=== PATIENT | female | born 1980 | race Two or more races ===

== ENCOUNTER 2024-06-18 06:51 | Day surgery (SDC) | payer BC, SELFPAY ==
[2024-06-18] VITALS (10 sets, daily range): BP systolic 145–182; BP diastolic 78–101; BMI 30.1
[2024-06-18] MEDS: TYLENOL 1000 MG PO (08:10)
[2024-06-18] MEDS: CELEBREX 200 MG PO (08:11)
[2024-06-18 08:17] LABS: HCG, Urine Qualitative Screen Negative
[2024-06-18] MEDS: HEPARIN 5000 UNITS SC (08:36)
[2024-06-18] MEDS: VIBRAMYCIN 260 MG IV (08:36)
[2024-06-18] MEDS: NORMOSOL-R 1000 IV (08:38)
[2024-06-18] MEDS: SUBLIMAZE 25 MCG IV (10:15)
--- NOTE | 2024-06-18 10:21 | SUR.PHASEI ---
BP elevated 182/98. Dr Jossie craig. Marianne Trivedi RN BSN.
--- NOTE | 2024-06-18 11:38 | OR.RPT ---
Operative Report
Operative Report
Date of procedure June 18, 2024
Preoperative diagnosis: Endometrial hyperplasia
Postoperative diagnosis: Pending final pathology
Procedure dilation and curettage, hysteroscopy with MyoSure
Anesthesia monitored anesthetic care and paracervical block
Estimated blood loss less than 10 cc
Complications none
Surgeon: Manuel Melendez
Assist: Farhat Crow PA-C
Procedure in detail: This patient was brought to the operating room, she was placed in supine position, monitored anesthetic care was provided and the patient was sedated adequately. She was placed in lithotomy position using yellowfin stirrups.
She was prepped on the perineum and vagina and upper thighs. Timeout procedure was completed. She received doxycycline for prophylaxis. We used a Johnson retractor to identify the cervix. Anterior lip was grasped with single-tooth tenaculum.
Paracervical block with 10 cc 1% lidocaine was injected at 5 and 7:00. Cervical canal was gently dilated, the cervix appears to curve posteriorly suggestive of a retroverted uterus. Uterus sounded to about 8 to 9 cm. MyoSure hysteroscopy device
was inserted in the uterine cavity and only a buildup of tissue was visualized. Both tubal ostia are visible. We used a light system to shave the endometrium across all surfaces. This was submitted as MyoSure shavings. Next sharp curettage of
the endometrium was performed and the tissue was submitted to pathology. There was no discrete masses or polyp present. Endocervical canal and lower uterine segments are unremarkable.
Patient was awakened extubated and returned back to recovery room stable awake and extubated condition counts of laps instruments and needle was correct x 2. I was present and scrubbed for entire procedure as dictated above
to PACU: stable, extubated
== END 2024-06-18 11:51 | disposition home or self-care (01) ==
LOC: SDS 06:51
PROVIDERS: ATTENDING PHYSICIAN Obstetrics & Gynecology Gynecologic Oncology
DX: N85.02 Endometrial intraepithelial neoplasia [EIN] (principal)
CPT/HCPCS: 58558; 88305; 81025; 86850; 86900; 86901